=== PATIENT | female | born 1935 | race Asian ===

== ENCOUNTER → 2016-05-20 | Outpatient (CLI) | payer MEDICARE, OTHER ==
[~2016-05-20] MED LIST: ADV250 IH; AMLO-512 PO; ASPI81 PO; CALC1TAB15 PO; SIMV5TAB6 PO; VITAD50000 PO
== END | disposition home or self-care (01) ==
LOC: RADPV 09:36
PROVIDERS: ATTEND Legal Medicine
DX: M50.320 Other cervical disc degeneration, mid-cervical region, unspecified level (principal); M47.892 Other spondylosis, cervical region; M12.88 Other specific arthropathies, not elsewhere classified, other specified site
CPT/HCPCS: 72040

== ENCOUNTER → 2016-06-14 | Outpatient (CLI) | payer MEDICARE, OTHER ==
[~2016-06-14] VITALS: Ht 154.9 cm; Wt 51.6 kg
[2016-06-14 10:06] VITALS: BP 142/77
== END | disposition home or self-care (01) ==
LOC: SRCNTR 09:52
PROVIDERS: ATTEND Internal Medicine Critical Care Medicine
DX: I10 Essential (primary) hypertension (principal); J45.991 Cough variant asthma; J45.901 Unspecified asthma with (acute) exacerbation; R09.82 Postnasal drip
CPT/HCPCS: G0463

== ENCOUNTER → 2016-12-29 | Outpatient (CLI) | payer MEDICARE, OTHER ==
[~2016-12-29] VITALS: Ht 154.9 cm; Wt 53.0 kg
[~2016-12-29] MED LIST changes: +FLUT1AER IH; +INFLUENZA VIRUS VACCINE QVS 2017-18 (3YR+)/PF 60 MCG/0.5 ML SYRINGE IM ONE; +MONT10TA21 PO
[2016-12-29 11:36] VITALS: BP 148/71
== END | disposition home or self-care (01) ==
LOC: SRCNTR 11:20
PROVIDERS: ATTEND Internal Medicine Critical Care Medicine
DX: I10 Essential (primary) hypertension (principal); R09.82 Postnasal drip; J45.991 Cough variant asthma
CPT/HCPCS: 90471 ×2; 96372; G0463

== ENCOUNTER → 2017-02-15 | Outpatient (CLI) | payer MEDICARE, OTHER ==
[~2017-02-15] MED LIST changes: -INFLUENZA VIRUS VACCINE QVS 2017-18 (3YR+)/PF 60 MCG/0.5 ML SYRINGE IM ONE
== END | disposition home or self-care (01) ==
LOC: RADPV 08:37
PROVIDERS: ATTEND Internal Medicine Critical Care Medicine
DX: J98.11 Atelectasis (principal); I70.0 Atherosclerosis of aorta
CPT/HCPCS: 71020

== ENCOUNTER → 2017-04-17 | Outpatient (CLI) | payer MEDICARE, OTHER ==
[~2017-04-17] VITALS: Ht 154.9 cm; Wt 51.7 kg
[2017-04-17 11:24] VITALS: BP 116/66
== END | disposition home or self-care (01) ==
LOC: SRCNTR 11:18
PROVIDERS: ATTEND Internal Medicine Critical Care Medicine
DX: J45.901 Unspecified asthma with (acute) exacerbation (principal); I10 Essential (primary) hypertension
CPT/HCPCS: G0463

== ENCOUNTER → 2017-05-09 | Outpatient (CLI) | payer MEDICARE, OTHER ==
[~2017-05-09] VITALS: Ht 154.9 cm; Wt 51.8 kg
[~2017-05-09] MED LIST changes: -ADV250 IH
[2017-05-09 12:29] VITALS: BP 130/64
== END | disposition home or self-care (01) ==
LOC: SRCNTR 12:14
PROVIDERS: ATTEND Internal Medicine Critical Care Medicine
DX: J45.991 Cough variant asthma (principal); I10 Essential (primary) hypertension; Z90.710 Acquired absence of both cervix and uterus; Z79.82 Long term (current) use of aspirin; W19.XXXA Unspecified fall, initial encounter
CPT/HCPCS: 85610; G0463

== ENCOUNTER → 2017-07-31 | Outpatient (CLI) | payer MEDICARE, OTHER ==
[~2017-07-31] VITALS: Ht 154.9 cm; Wt 53.0 kg
[2017-07-31 09:12] VITALS: BP 139/70
== END | disposition home or self-care (01) ==
LOC: SRCNTR 08:56
PROVIDERS: ATTEND Internal Medicine Critical Care Medicine
DX: J45.901 Unspecified asthma with (acute) exacerbation (principal); J45.991 Cough variant asthma; I10 Essential (primary) hypertension; W19.XXXA Unspecified fall, initial encounter; Z79.82 Long term (current) use of aspirin; Z90.710 Acquired absence of both cervix and uterus
CPT/HCPCS: G0463

== ENCOUNTER → 2017-10-23 | Outpatient (CLI) | payer MEDICARE, OTHER ==
[~2017-10-23] VITALS: Ht 154.9 cm; Wt 53.5 kg
[2017-10-23 13:49] VITALS: BP 116/48
== END | disposition home or self-care (01) ==
LOC: SRCNTR 13:40
PROVIDERS: ATTEND Internal Medicine Critical Care Medicine
DX: J45.901 Unspecified asthma with (acute) exacerbation (principal); I10 Essential (primary) hypertension; R09.82 Postnasal drip
CPT/HCPCS: G0463

== ENCOUNTER → 2018-03-08 | Outpatient (CLI) | payer MEDICARE, OTHER ==
[~2018-03-08] VITALS: Ht 154.9 cm; Wt 54.5 kg
[2018-03-08 13:39] VITALS: BP 127/64
== END | disposition home or self-care (01) ==
LOC: SRCNTR 13:16
PROVIDERS: ATTEND Internal Medicine Critical Care Medicine
DX: I10 Essential (primary) hypertension (principal); J45.901 Unspecified asthma with (acute) exacerbation; R09.82 Postnasal drip; Z23 Encounter for immunization
CPT/HCPCS: 90471; 90686; G0463

== ENCOUNTER → 2018-06-13 | Outpatient (CLI) | payer MEDICARE, OTHER ==
[~2018-06-13] VITALS: Ht 154.9 cm; Wt 53.5 kg
[~2018-06-13] MED LIST changes: +ATOR10TA84 PO; +ONE A DAY PO; +SIMV5TAB59 PO; -SIMV5TAB6 PO
[2018-06-13 13:42] VITALS: BP 141/77
== END | disposition home or self-care (01) ==
LOC: SRCNTR 13:42
PROVIDERS: ATTEND Internal Medicine Critical Care Medicine
DX: J43.9 Emphysema, unspecified (principal); I10 Essential (primary) hypertension
CPT/HCPCS: G0463

== ENCOUNTER → 2018-09-18 | Outpatient (CLI) | payer MEDICARE, OTHER ==
[~2018-09-18] MED LIST changes: -CALC1TAB15 PO; +LIFI1DRO OU; -SIMV5TAB59 PO
== END | disposition home or self-care (01) ==
LOC: RADPV 11:38
PROVIDERS: ATTEND Internal Medicine Critical Care Medicine
DX: I70.0 Atherosclerosis of aorta (principal)

== ENCOUNTER → 2018-12-31 | Outpatient (CLI) | payer MEDICARE, OTHER ==
[~2018-12-31] MED LIST changes: -AMLO-512 PO; +AMLO10TA7 PO; +GADOBUTROL 1 MMOL/ML 10 ML VIAL IVP ONE
== END | disposition home or self-care (01) ==
LOC: RADMN 11:46
PROVIDERS: ATTEND Legal Medicine
DX: I67.2 Cerebral atherosclerosis (principal); I67.82 Cerebral ischemia; I63.9 Cerebral infarction, unspecified
CPT/HCPCS: 70450; 70553; A9585

== ENCOUNTER → 2019-02-08 | Outpatient (CLI) | payer MEDICARE, OTHER ==
[~2019-02-08] VITALS: Ht 154.9 cm; Wt 52.0 kg
[~2019-02-08] MED LIST changes: +CETI10TA59 PO; +CHOL500043 PO; -GADOBUTROL 1 MMOL/ML 10 ML VIAL IVP ONE; +RANI150T7 PO; -VITAD50000 PO
[2019-02-08 11:35] VITALS: BP 155/61
== END | disposition home or self-care (01) ==
LOC: SRCNTR 10:47
PROVIDERS: ATTEND Internal Medicine Critical Care Medicine
DX: I10 Essential (primary) hypertension (principal); J44.9 Chronic obstructive pulmonary disease, unspecified; J45.909 Unspecified asthma, uncomplicated; R09.82 Postnasal drip; Z79.82 Long term (current) use of aspirin
CPT/HCPCS: G0463

== ENCOUNTER → 2019-04-26 | Outpatient (CLI) | payer MEDICARE, OTHER ==
[~2019-04-26] VITALS: Ht 154.9 cm; Wt 53.0 kg
[~2019-04-26] MED LIST changes: +ASPI-728 PO; -ASPI81 PO
[2019-04-26 09:37] VITALS: BP 117/52
== END | disposition home or self-care (01) ==
LOC: SRCNTR 09:35
PROVIDERS: ATTEND Internal Medicine Critical Care Medicine
DX: J43.9 Emphysema, unspecified (principal); I10 Essential (primary) hypertension; R09.82 Postnasal drip
CPT/HCPCS: G0463

== ENCOUNTER → 2019-06-21 | Outpatient (CLI) | payer MEDICARE, OTHER ==
[~2019-06-21] MED LIST changes: +GADOBUTROL 1 MMOL/ML 10 ML VIAL IVP ONE
== END | disposition home or self-care (01) ==
LOC: RADMN 13:02
PROVIDERS: ATTEND Legal Medicine
DX: I67.82 Cerebral ischemia (principal); J32.0 Chronic maxillary sinusitis; J32.2 Chronic ethmoidal sinusitis; J32.3 Chronic sphenoidal sinusitis; I63.9 Cerebral infarction, unspecified; Z98.890 Other specified postprocedural states
CPT/HCPCS: 70553; A9585

== ENCOUNTER → 2020-01-20 | Outpatient (CLI) | payer MEDICARE, OTHER ==
[~2020-01-20] MED LIST changes: +AMLO-258 PO; -AMLO10TA7 PO; +CETI-450 PO; -CETI10TA59 PO; -GADOBUTROL 1 MMOL/ML 10 ML VIAL IVP ONE; +INFLUENZA VIRUS VACCINE QVS 2020-21 (6MO+)/PF 60 MCG/0.5 ML SYRINGE IM ONE; +MONT-35 PO; -MONT10TA21 PO
[2020-01-20 09:36] VITALS: BP 128/63
== END | disposition home or self-care (01) ==
LOC: SRCNTR 09:14
PROVIDERS: ATTEND Internal Medicine Critical Care Medicine
DX: Z23 Encounter for immunization (principal)
CPT/HCPCS: 90471; 90686; G0463

== ENCOUNTER → 2020-03-24 | Outpatient (CLI) | payer MEDICARE, OTHER ==
[~2020-03-24] VITALS: Ht 154.9 cm; Wt 53.0 kg
[~2020-03-24] MED LIST changes: -INFLUENZA VIRUS VACCINE QVS 2020-21 (6MO+)/PF 60 MCG/0.5 ML SYRINGE IM ONE
[2020-03-24 15:19] VITALS: BP 134/76
== END | disposition home or self-care (01) ==
LOC: SRCNTR 10:28
PROVIDERS: ATTEND Internal Medicine Critical Care Medicine
DX: R09.82 Postnasal drip (principal); J43.9 Emphysema, unspecified; I10 Essential (primary) hypertension
CPT/HCPCS: G0463

== ENCOUNTER → 2020-03-26 | Outpatient (CLI) | payer MEDICARE, OTHER | END | disposition home or self-care (01) | LOC: RADPV 10:35 | PROVIDERS: ATTEND Internal Medicine Critical Care Medicine | DX: J98.11 Atelectasis (principal); J44.9 Chronic obstructive pulmonary disease, unspecified; I51.7 Cardiomegaly; I70.0 Atherosclerosis of aorta | CPT/HCPCS: 71046; 71046-TC ==

== ENCOUNTER → 2020-12-22 | Outpatient (CLI) | payer MEDICARE, OTHER ==
[~2020-12-22] MED LIST changes: +ASPI-1450 PO; -ASPI-728 PO
[2020-12-22 11:56] VITALS: BP 124/71
== END | disposition home or self-care (01) ==
LOC: SRCNTR 11:22
PROVIDERS: ATTEND Internal Medicine Critical Care Medicine
DX: S22.089A Unspecified fracture of T11-T12 vertebra, initial encounter for closed fracture (principal); I10 Essential (primary) hypertension; N32.81 Overactive bladder; J43.8 Other emphysema; R09.82 Postnasal drip; X58.XXXA Exposure to other specified factors, initial encounter; Y93.89 Activity, other specified; Y92.89 Other specified places as the place of occurrence of the external cause; Y99.8 Other external cause status
CPT/HCPCS: G0463

== ENCOUNTER → 2021-01-29 | Outpatient (CLI) | payer MEDICARE, OTHER ==
[~2021-01-29] MED LIST changes: +INFLUENZA VIRUS VACCINE QVS 2021-22 (6MO+)/PF 60 MCG/0.5 ML SYRINGE IM. ONE
[2021-01-29 10:00] VITALS: BP 133/63
== END | disposition home or self-care (01) ==
LOC: SRCNTR 08:55
PROVIDERS: ATTEND Internal Medicine Critical Care Medicine
DX: Z23 Encounter for immunization (principal); I10 Essential (primary) hypertension; J43.8 Other emphysema
CPT/HCPCS: 90471; 90686; G0463

== ENCOUNTER → 2021-05-26 | Outpatient (CLI) | payer MEDICARE, OTHER ==
[~2021-05-26] VITALS: Ht 152.4 cm; Wt 50.2 kg
[~2021-05-26] MED LIST changes: -INFLUENZA VIRUS VACCINE QVS 2021-22 (6MO+)/PF 60 MCG/0.5 ML SYRINGE IM. ONE
[2021-05-26 10:55] VITALS: BP 134/76
== END | disposition home or self-care (01) ==
LOC: SRCNTR 10:44
PROVIDERS: ATTEND Internal Medicine Critical Care Medicine
DX: S22.089A Unspecified fracture of T11-T12 vertebra, initial encounter for closed fracture (principal); J44.1 Chronic obstructive pulmonary disease with (acute) exacerbation; I10 Essential (primary) hypertension; J43.9 Emphysema, unspecified; R09.82 Postnasal drip; N32.81 Overactive bladder; Z88.8 Allergy status to other drugs, medicaments and biological substances; Z79.899 Other long term (current) drug therapy; Z79.82 Long term (current) use of aspirin; X58.XXXA Exposure to other specified factors, initial encounter; Y93.89 Activity, other specified; Y92.89 Other specified places as the place of occurrence of the external cause; Y99.8 Other external cause status
CPT/HCPCS: G0463; Z7500

== ENCOUNTER → 2021-06-09 | Outpatient (CLI) | payer MEDICARE, OTHER | END | disposition home or self-care (01) | LOC: LABMN 10:42 | PROVIDERS: ATTEND Internal Medicine Critical Care Medicine | DX: M85.88 Other specified disorders of bone density and structure, other site (principal); M47.812 Spondylosis without myelopathy or radiculopathy, cervical region; M46.02 Spinal enthesopathy, cervical region; R29.890 Loss of height; M25.78 Osteophyte, vertebrae; M54.9 Dorsalgia, unspecified | CPT/HCPCS: 72040 ==

== ENCOUNTER → 2021-07-02 | Outpatient (CLI) | payer MEDICARE, OTHER | END | disposition home or self-care (01) | LOC: RADMN 15:56 | PROVIDERS: ATTEND Legal Medicine | DX: I69.314 Frontal lobe and executive function deficit following cerebral infarction (principal); I63.9 Cerebral infarction, unspecified; J32.0 Chronic maxillary sinusitis; J32.3 Chronic sphenoidal sinusitis; R51.9 Headache, unspecified; Z96.1 Presence of intraocular lens | CPT/HCPCS: 70551 ==

== ENCOUNTER → 2021-09-13 | Outpatient (CLI) | payer MEDICARE, OTHER ==
[~2021-09-13] VITALS: Ht 152.4 cm; Wt 50.2 kg
[2021-09-13 10:43] VITALS: BP 139/74
== END | disposition home or self-care (01) ==
LOC: SRCNTR 10:08
PROVIDERS: ATTEND Internal Medicine Critical Care Medicine
DX: I10 Essential (primary) hypertension (principal); S22.080D Wedge compression fracture of T11-T12 vertebra, subsequent encounter for fracture with routine healing; S06.5X9D Traumatic subdural hemorrhage with loss of consciousness of unspecified duration, subsequent encounter; J44.1 Chronic obstructive pulmonary disease with (acute) exacerbation; N32.81 Overactive bladder; X58.XXXD Exposure to other specified factors, subsequent encounter
CPT/HCPCS: G0463

== ENCOUNTER → 2022-01-31 | Outpatient (CLI) | payer MEDICARE, OTHER ==
[~2022-01-31] MED LIST changes: +ATOR10TA PO; -ATOR10TA84 PO
== END | disposition home or self-care (01) ==
LOC: RADMN 15:07
PROVIDERS: ATTEND Internal Medicine Pulmonary Disease
DX: S22.089A Unspecified fracture of T11-T12 vertebra, initial encounter for closed fracture (principal); J44.9 Chronic obstructive pulmonary disease, unspecified; M47.814 Spondylosis without myelopathy or radiculopathy, thoracic region; X58.XXXA Exposure to other specified factors, initial encounter; Y93.89 Activity, other specified; Y92.89 Other specified places as the place of occurrence of the external cause; Y99.8 Other external cause status
CPT/HCPCS: 71046

== ENCOUNTER → 2022-01-31 | Outpatient (CLI) | payer MEDICARE, OTHER ==
[~2022-01-31] VITALS: Ht 147.3 cm; Wt 48.5 kg
[~2022-01-31] MED LIST changes: +INFLUENZA VIRUS VACCINE QVS 2022-23 (6MO+)/PF 60 MCG/0.5 ML SYRINGE IM. ONE
[2022-01-31 14:24] VITALS: BP 145/68
== END | disposition home or self-care (01) ==
LOC: SRCNTR 10:25
PROVIDERS: ATTEND Internal Medicine Pulmonary Disease
DX: Z23 Encounter for immunization (principal); J44.9 Chronic obstructive pulmonary disease, unspecified
CPT/HCPCS: 90686; 90471; G0463

== ENCOUNTER → 2022-02-09 | Outpatient (CLI) | payer MEDICARE, OTHER ==
[~2022-02-09] MED LIST changes: -INFLUENZA VIRUS VACCINE QVS 2022-23 (6MO+)/PF 60 MCG/0.5 ML SYRINGE IM. ONE
== END | disposition home or self-care (01) ==
LOC: RADPV 12:48
PROVIDERS: ATTEND Legal Medicine
DX: M81.8 Other osteoporosis without current pathological fracture (principal)
CPT/HCPCS: 77080

== ENCOUNTER → 2022-12-13 | Outpatient (CLI) | payer MEDICARE, OTHER ==
[~2022-12-13] VITALS: Ht 147.3 cm; Wt 47.2 kg
[2022-12-13 11:23] VITALS: BP 131/48; PULSE 67; RESP 18; TEMP 98.7; O2SAT 99
== END | disposition home or self-care (01) ==
LOC: SRCNTR 11:03
PROVIDERS: ATTEND Internal Medicine Pulmonary Disease
DX: J44.1 Chronic obstructive pulmonary disease with (acute) exacerbation (principal); I10 Essential (primary) hypertension; S22.089A Unspecified fracture of T11-T12 vertebra, initial encounter for closed fracture; X58.XXXA Exposure to other specified factors, initial encounter; Z79.899 Other long term (current) drug therapy; Z79.82 Long term (current) use of aspirin; Z88.8 Allergy status to other drugs, medicaments and biological substances; Y93.89 Activity, other specified; Y92.89 Other specified places as the place of occurrence of the external cause; Y99.8 Other external cause status
CPT/HCPCS: G0463; Z7500

== ENCOUNTER → 2023-04-24 | Outpatient (CLI) | payer MEDICARE, OTHER ==
[~2023-04-24] VITALS: Ht 147.3 cm; Wt 48.0 kg
[~2023-04-24] MED LIST changes: +ALEN10TA33 PO; -CETI-450 PO; -LIFI1DRO OU; -RANI150T7 PO
[2023-04-24 11:10] VITALS: BP 152/78; PULSE 70; RESP 18; TEMP 98.4; O2SAT 99
== END | disposition home or self-care (01) ==
LOC: SRCNTR 10:17
PROVIDERS: ATTEND Internal Medicine Pulmonary Disease
DX: R09.82 Postnasal drip (principal); J43.9 Emphysema, unspecified; J44.1 Chronic obstructive pulmonary disease with (acute) exacerbation; I10 Essential (primary) hypertension; N32.81 Overactive bladder; S22.089A Unspecified fracture of T11-T12 vertebra, initial encounter for closed fracture; Z79.899 Other long term (current) drug therapy; Z79.82 Long term (current) use of aspirin; Z88.8 Allergy status to other drugs, medicaments and biological substances; Z98.890 Other specified postprocedural states; X58.XXXA Exposure to other specified factors, initial encounter; Y93.89 Activity, other specified; Y92.89 Other specified places as the place of occurrence of the external cause; Y99.8 Other external cause status
CPT/HCPCS: G0463; Z7500

== ENCOUNTER → 2023-07-21 | Outpatient (CLI) | payer MEDICARE, OTHER | END | disposition home or self-care (01) | LOC: RADMN 12:20 | PROVIDERS: ATTEND Internal Medicine Pulmonary Disease | DX: J44.9 Chronic obstructive pulmonary disease, unspecified (principal); M41.84 Other forms of scoliosis, thoracic region; M47.814 Spondylosis without myelopathy or radiculopathy, thoracic region; M43.8X4 Other specified deforming dorsopathies, thoracic region | CPT/HCPCS: 71046 ==

== ENCOUNTER → 2023-08-16 | Outpatient (CLI) | payer MEDICARE, OTHER ==
[~2023-08-16] VITALS: Ht 149.9 cm; Wt 45.0 kg
[2023-08-16 11:08] VITALS: BP 142/58; PULSE 70; RESP 20; TEMP 98.1; O2SAT 98
== END | disposition home or self-care (01) ==
LOC: SRCNTR 10:32
PROVIDERS: ATTEND Internal Medicine Pulmonary Disease
DX: R63.4 Abnormal weight loss (principal); J44.1 Chronic obstructive pulmonary disease with (acute) exacerbation; I10 Essential (primary) hypertension; N31.2 Flaccid neuropathic bladder, not elsewhere classified; S22.089A Unspecified fracture of T11-T12 vertebra, initial encounter for closed fracture; Z79.899 Other long term (current) drug therapy; Z88.8 Allergy status to other drugs, medicaments and biological substances; X58.XXXA Exposure to other specified factors, initial encounter; Y93.89 Activity, other specified; Y92.89 Other specified places as the place of occurrence of the external cause; Y99.8 Other external cause status
CPT/HCPCS: G0463; Z7500